=== PATIENT | female | born 1985 | race Caucasian/White ===

== ENCOUNTER 2025-08-22 12:01 | Outpatient (CLI) | payer OTHER, SELFPAY ==
--- NOTE | ~2025-08-22 | US_ITS ---
EXAMINATION: US OB <=14 wk fetus w TV DATE: 08/22/2025 12:30 INDICATION: Uncertain dating of . Assess for IUD TECHNIQUE: Real-time pelvic ultrasound utilizing both a transvaginal and transabdominal probe was performed. The interpreting radiologist was not present for the study. COMPARISON: None. FINDINGS: The uterus measures 11.7 x 8.2 x 11.3 cm. There is an intrauterine gestational sac. A yolk sac and pole are identified. The crown rump length measures 5.0 cm, which correlates with an estimated gestational age of 11 weeks and 5 days. heart motion is identified measuring 149 beats per minute (bpm) by M-mode Doppler. There are multiple anechoic nabothian cysts at the cervix the largest measuring approximately 1.5 cm. No evident linear echogenic structures to suggest retained IUD or IUD fragments. The right ovary measures 3.3 x 1.9 x 1.8 cm. The left ovary measures 3.1 x 2.3 x 1.7 cm. There is no free fluid in the pelvis. IMPRESSION: 1. Single living fetus with heart rate of 149 bpm. 2. Gestational age by ultrasound of 11 weeks 5 day(s) +/- 7 day(s) with ultrasound estimated date of delivery ([facility]) of 03/08/2026. 3. No evident IUD or retained IUD fragments. Reviewed, dictated and finalized at location A. MACHINE OPERATOR IMPRESSION: 1. Single living fetus with heart rate of 149 bpm. 2. Gestational age by ultrasound of 11 weeks 5 day(s) +/- 7 day(s) with ultras ound estimated date of delivery ([facility]) of 03/08/2026. 3. No evident IUD or retained IUD fragments.
== END 2025-08-22 12:02 | disposition home or self-care (01) ==
LOC: MICIMG 12:03
DX: Z36.87 Encounter for antenatal screening for uncertain dates (principal); Z30.431 Encounter for routine checking of intrauterine contraceptive device
CPT/HCPCS: 76801; 76817